=== PATIENT | female | born 1985 | race Two or more races ===

== ENCOUNTER 2017-11-30 19:37 | Emergency (ER) | payer OTHER ==
[~2017-11-30] VITALS: Ht 165.1 cm; Wt 81.6 kg
[2017-11-30 20:43] VITALS: BP 131/85
[2017-11-30] MEDS ORDERED: HYDROCODONE/APAP 5/325MG 1 EACH TABLET PO ONE (23:00)
[2017-11-30] MEDS ORDERED: HYDROCODONE/APAP 5/325MG 1 EACH TABLET ONE (23:05)
--- NOTE | 2017-12-01 02:25 | NUR ---
PT NOT IN ROOM. PT ELOPED.
== END 2017-12-01 02:26 | disposition left against medical advice (07) ==
LOC: ER 19:45
DX: S39.012A Strain of muscle, fascia and tendon of lower back, initial encounter (principal); S29.012A Strain of muscle and tendon of back wall of thorax, initial encounter; S20.212A Contusion of left front wall of thorax, initial encounter; G44.309 Post-traumatic headache, unspecified, not intractable; E03.9 Hypothyroidism, unspecified; W01.0XXA Fall on same level from slipping, tripping and stumbling without subsequent striking against object, initial encounter; Y93.89 Activity, other specified; Y92.89 Other specified places as the place of occurrence of the external cause; Y99.8 Other external cause status
CPT/HCPCS: 70450; 71045; 72070; 72110; 99284; A4606; Z7610